=== PATIENT | female | born 1955 | race African-American/Black ===

== ENCOUNTER 2020-04-05 14:57 | Emergency (ER) | payer MEDICARE, SELFPAY ==
[2020-04-05 15:03] VITALS: BP 127/75; PULSE 62; RESP 16; TEMP 36.5; O2SAT 98
--- NOTE | 2020-04-05 15:13 | ED.GENADULT ---
HPI - General Adult General Chief complaint: Nausea/Vomiting/Diarrhea <Arnoldo Saenz PA-C - Last Filed: 04/05/20 16:40> Stated complaint: nausea x 2 weeks <Arnoldo Saenz PA-C - Last Filed: 04/05/20 16:40> Time Seen by Provider: 04/05/20 15:04 <Arnoldo Saenz PA-C - Last Filed: 04/05/20 16:40> Source: patient <Arnoldo Saenz PA-C - Last Filed: 04/05/20 16:40> Mode of arrival: ambulatory <Arnoldo Saenz PA-C - Last Filed: 04/05/20 16:40> Limitations: no limitations <LUZ MARIA Dias Last Filed: 04/05/20 16:40> History of Present Illness HPI narrative: Patient is a 65-year-old female who presents to emergency department for evaluation of nausea with intermittent vomiting that is been present now over the last 2 weeks her primary care called in Augmentin due to some congestion however patient notes this is minimal in nature. Patient notes that she has had some dark stool denies any NSAID use or anticoagulant use or history of rectal bleeding. Patient notes mild nausea with intermittent vomiting with decreased desire to eat. Patient denies any pain on arrival is in the room in no distress <Arnoldo Saenz PA-C - Last Filed: 04/05/20 16:40> Related Data Allergies/adverse reactions: Allergies Allergy/AdvReac Type Severity Reaction Status Date / Time No Known Allergies Allergy Unverified 01/04/18 07:37 <Arnoldo Saenz PA-C - Last Filed: 04/05/20 16:40> Review of Systems Review of Systems: All systems reviewed & are unremarkable except as noted in HPI and below <Arnoldo Saenz PA-C - Last Filed: 04/05/20 16:40> PMFSH Past Medical History Medical History: Medical History (Updated 04/05/20 @ 16:38 by Arnoldo Saenz PA-C) Hyperlipidemia <Arnoldo Saenz PA-C - Last Filed: 04/05/20 16:40> Exam Narrative: Exam Narrative: GENERAL: Well-appearing, well-nourished, and in no acute distress. HEAD: Normocephalic, atraumatic. EYES: PERRLA and EOMI. ENT: Nares clear, no rhinorrhea or epistaxis. Mucous membranes moist. Oropharynx without tonsillar hypertrophy exudate or other lesions. Patient with bilateral cerumen impaction NECK: Supple. No adenopathy or masses. CHEST: Clear to auscultation. No respiratory distress. No wheezes rales or rhonchi HEART: Regular rate and rhythm. No murmur heard. Normal peripheral pulses. ABDOMEN: Soft, nontender, nondistended EXTREMITIES: Normal range of motion. No edema. SKIN: Warm, dry, no rash. NEURO: No focal deficits. Alert and oriented x3. PSYCH: Normal mood and affect. <LUZ MARIA Dias Last Filed: 04/05/20 16:40> Course Course Emergency Course: Patient in the room in no distress aware of case findings treatment plan and diagnosis will be referred to primary care for further evaluation <Arnoldo Saenz PA-C - Last Filed: 04/05/20 16:40> Vital Signs Vital signs: Vital Signs Temperature 97.7 F 04/05/20 15:03 Pulse Rate 62 04/05/20 15:03 Respiratory Rate 16 04/05/20 15:03 Blood Pressure 127/75 04/05/20 15:03 Pulse Oximetry 98 04/05/20 15:03 Temperature 97.7 F 04/05/20 15:03 Pulse Rate 85 04/05/20 16:43 Respiratory Rate 18 04/05/20 16:43 Blood Pressure 132/75 04/05/20 16:43 Pulse Oximetry 98 04/05/20 16:43 <LUZ MARIA Dias Last Filed: 04/05/20 16:40> Vital Signs Temperature 97.7 F 04/05/20 15:03 Pulse Rate 62 04/05/20 15:03 Respiratory Rate 16 04/05/20 15:03 Blood Pressure 127/75 04/05/20 15:03 Pulse Oximetry 98 04/05/20 15:03 Temperature 97.7 F 04/05/20 15:03 Pulse Rate 85 04/05/20 16:43 Respiratory Rate 18 04/05/20 16:43 Blood Pressure 132/75 04/05/20 16:43 Pulse Oximetry 98 04/05/20 16:43 <Ana Webster MD - Last Filed: 04/05/20 17:37> Medical Decision Making MDM Narrative Medical decision making narrative: Patient with zine vomiting of unknown etiology will be
[2020-04-05 15:23] LABS: Basophils Absolute Auto 0.1 K/mm3 (0.0-0.1); Basophils Percent Auto 1.2 % (0.2-1.2); Eosinophils Absolute Auto 0.3 K/mm3 (0-0.3); Eosinophils Percent Auto 3.8 % (0-4.4); Hematocrit 41.6 % (37.0-47.0); Hemoglobin 13.6 g/dL (12.0-15.0); Immature Granulocyte Absolute 0.02 K/mm3 (0.00-0.031); Immature Granulocyte Percent A 0.3 % (0-0.5); Lymphocytes Absolute Auto 2.76 K/mm3 (0.9-3.2); Lymphocytes Percent Auto 36.4 % (18.3-44.2); Mean Corpuscular HGB Conc 32.7 g/dl (32-36); Mean Corpuscular Hemoglobin 25.8 pg (26-34); Mean Corpuscular Volume 78.9 fl (80-100); Mean Platelet Volume 9.9 fl (7.4-10.4); Monocytes Absolute Auto 0.7 K/mm3 (0.1-0.6); Monocytes Percent Auto 8.8 % (2.6-8.5); Neutrophils Absolute Auto 3.8 K/mm3 (1.3-6.7); Neutrophils Percent Auto 49.5 % (45.5-73.1); Platelet Count Result 354 k/mm3 (150-375); Red Blood Count 5.27 M/mm3 (4.2-5.4); White Blood Count 7.6 K/mm3 (4.5-10.0)
[2020-04-05] MEDS: SODIUM CHLORIDE 0.9% IV 1,000 ML 999 ML IV CONT (15:23)
[2020-04-05] MEDS: FAMOTIDINE 20 MG/2 ML VIAL IV PUSH (15:23)
[2020-04-05] MEDS: ONDANSETRON INJ 4 MG/2 ML VIAL IV PUSH (15:23)
[2020-04-05 15:50] VITALS: BP 138/68; PULSE 57
[2020-04-05 15:51] VITALS: BP 126/85; PULSE 51
[2020-04-05 15:53] VITALS: BP 148/72; PULSE 66
[2020-04-05 15:53] LABS: Alanine Aminotransferase 15 U/L (4-35); Albumin Level 4.6 g/dL (3.5-5.1); Alkaline Phosphatase 147 U/L (38-126); Aspartate Amino Transferase 22 U/L (14-36); Bilirubin,Total 0.6 mg/dL (0.2-1.3); Blood Urea Nitrogen 19 mg/dL (7-17); Calcium 9.9 mg/dL (8.4-10.2); Carbon Dioxide 29 mmol/L (22-30); Chloride 103 mmol/L (98-107); Estimated CRCL calculation 47 ml/min; Estimated Glomerular Filt Rate > 60; Glucose 91 mg/dL (65-105); Lipase 93 U/L (23-300); Potassium 3.5 mmol/L (3.4-5.0); Sodium 140 mmol/L (137-145)
[2020-04-05 16:17] LABS: Add Urine Microscopic? YES; Appearance Urine Clear (Clear); Bacteria Urine Trace /hpf; Bilirubin Urine Negative (Negative); Blood Urine Negative (Negative); Color Urine Yellow (Yellow); Glucose Urine UA Negative (Negative); Ketones Urine Negative (Negative); Leukocyte Esterase Ur Negative LEU/UL (Negative); Mucus Urine Rare /lpf; Nitrate Urine Negative (Negative); Protein Urine 1+ mg/dL (Negative); RBC Urine 0-2 /hpf (0-2); Specific Grav Ur 1.018 (1.001-1.035); Squamous Epithelial Cell Urine Many /hpf (Few)
[2020-04-05 16:43] VITALS: BP 132/75; PULSE 85; RESP 18; O2SAT 98
== END 2020-04-05 16:45 | disposition home or self-care (01) ==
PROVIDERS: Emergency Medicine Emergency Medical Services; Emergency Provider Emergency Medicine; PCP Internal Medicine Infectious Disease
DX: R11.2 Nausea with vomiting, unspecified (principal); E78.5 Hyperlipidemia, unspecified
CPT/HCPCS: 36415; 80053; 81001; 83690; 85025; 96374; 96375; 99284; J2405; J7030

== ENCOUNTER 2022-05-30 11:01 | Emergency (ER) | payer MEDICARE, SELFPAY ==
--- NOTE | ~2022-05-30 | CT_ITS ---
EXAMINATION: CT wrist RT wo con DATE: 05/30/2022 13:38 INDICATION: Distal radial and wrist pain TECHNIQUE: Computed tomography (CT) of the wrist was performed without intravenous contrast. Automate d exposure control and iterative reconstruction technique were employed. Exam dose: 385.54 mGy-cm to le exam DLP. COMPARISON: 05/30/2022 right wrist FINDINGS: Probable old distal radial dorsal cortical fracture. No recent lucent fracture line is evident. Chip fractures of uncertain age are noted along the dorsal aspect of the trapezoid bone and the dorsa l medial aspect of the capitate bone. No fracture or dislocation is noted otherwise. IMPRESSION: Probable old distal radial fracture Small chip fractures of the dorsal aspect of the triquetrum and posteromedial distal capitate bone. T he carpal metacarpal area. Recommend clinical correlation for point tenderness to differentiate recen t from old fractures Reviewed, dictated and finalized at [facility]. Reviewed, dictated and finalized at [facility]. IMPRESSION: Probable old distal radial fracture Small chip fractures of the dorsal aspect of the triquetrum and posteromedial d istal capitate bone. The carpal metacarpal area. Recommend clinical correlation for point tenderness to differentiate recent from old fractures
--- NOTE | ~2022-05-30 | XR_ITS ---
XR wrist RT min 3V DATE: 05/30/2022 12:29 INDICATION: Right wrist pain for weeks. History of gout. TECHNIQUE: 4 views COMPARISON: None FINDINGS: There is mild osteophyte is at the third metacarpophalangeal and some interphalangeal joint s. Osteopenia. No fracture or dislocation, periosteal reaction or bone destruction is detected. IMPRESSION: Osteopenia Polyarticular osteoarthritis No fracture or dislocation Reviewed, dictated and finalized at [facility].
[2022-05-30 11:02] VITALS: BP 148/80; PULSE 61; RESP 16; TEMP 36.4; O2SAT 98
--- NOTE | 2022-05-30 12:26 | PC.NURSE ---
Pt taken to x-ray
[2022-05-30] MEDS: KETOROLAC 30 MG/ML VIAL (*BKC) IM (12:38)
--- NOTE | 2022-05-30 12:42 | ED.EXTPRO ---
HPI - Extremity Problem General Chief complaint: Extremity Problem,Nontraumatic Stated complaint: R HAND/WRIST PAIN NO INJURY Time Seen by Provider: 05/30/22 11:55 Source: patient History of Present Illness HPI Narrative: Patient presents with right wrist pain. For she had pain for the past 2 weeks she seen her primary care doctor had an x-ray performed but is unsure of the results. She does report a history of arthritis. She is attempted indomethacin with minimal relief she is also attempted Tylenol arthritis with more relief of her symptoms. Pain continues to progressively risk in the ER for further evaluation. Her pain is achy, constant, radiates up her arm, worse with attempting to move her wrist prickly with supination. Denies any fevers or chills denies any history of IV drug use. Related Data Allergies Allergy/AdvReac Type Severity Reaction Status Date / Time No Known Allergies Allergy Verified 05/30/22 11:35 Review of Systems Review of Systems: CONSTITUTIONAL: Denies fever, chills, or sweats. EYES: Denies visual changes, redness, or discharge. ENT: Denies rhinorrhea, congestion, sore throat, or otalgia. CARDIOVASCULAR: Denies chest pain, palpitations, or edema. RESPIRATORY: Denies cough or dyspnea. GASTROINTESTINAL: Denies abdominal pain, nausea, vomiting, or diarrhea. GENITOURINARY: Denies dysuria or hematuria. SKIN: Denies rash or itching. MUSCULOSKELETAL: Denies back pain, or myalgia. NEUROLOGIC: Denies headache, numbness, dizziness, or weakness. PSYCHIATRIC: Denies anxiety or depression. All systems reviewed & are unremarkable except as noted in HPI and below PMFSH Past Medical History Medical History Hyperlipidemia Exam Narrative: GENERAL: Well-appearing, well-nourished, and in no acute distress. HEAD: Normocephalic, atraumatic. EYES: PERRLA and EOMI. ENT: Nares clear, no rhinorrhea or epistaxis. Mucous membranes moist. NECK: Supple. No masses. No JVD EXTREMITIES: Normal range of motion. No edema. Edema and tenderness palpation on the right wrist limited range of motion due to pain with radial ulnar deviation and supination as well as flexion and extension of the wrist. SKIN: Warm, dry, no rash. NEURO: No focal deficits. Alert and oriented x3. PSYCH: Normal mood and affect. Course Reevaluation(s) Reevaluation #1: Patient resting comfortably reports feeling improved after Toradol. Results and plan reviewed with patient. Patient is comfortable outpatient plan. Patient reports he already has referral to orthopedic surgeon. Date: 05/30/22 Time: 14:33 Vital Signs Vital signs: Vital Signs Temperature 36.4 C 05/30/22 11:02 Pulse Rate 61 05/30/22 11:02 Respiratory Rate 16 05/30/22 11:02 Blood Pressure 148/80 H 05/30/22 11:02 Pulse Oximetry 98 05/30/22 11:02 Oxygen Delivery Room Air 05/30/22 11:02 Temperature 36.4 C 05/30/22 11:02 Pulse Rate 61 05/30/22 11:02 Respiratory Rate 16 05/30/22 11:02 Blood Pressure 148/80 H 05/30/22 11:02 Pulse Oximetry 98 05/30/22 11:02 Oxygen Delivery Room Air 05/30/22 11:02 MDM - Extremity (Nontraumatic) MDM Narrative Medical decision making narrative: H&P as above, vss, pt looks clinically well, exam times palpation of the wrist, imaging with small chip fracture given patient duration of symptoms expect these are acute fractures or patient denies any significant trauma additional labs/img considered, symptomatic relief available as needed, on reevaluation pt continues to looks clinically well. Suspect isolated fractures with possible superimposed flareup of arthritis dns dislocation, major neurovascular compromise, open fracture plan to tx/monitor as op w/ pcm f/u findings/plan discussed with pt, pt agree/comfortable with plan, return precautions given Imaging Data Radiologist's impression: Impressions Wrist X-Ray 05/30/22 12:38 IMPRESSION: Osteopenia Polyartic
== END 2022-05-30 15:05 | disposition home or self-care (01) ==
PROVIDERS: Emergency Provider Emergency Medicine; PCP Internal Medicine Infectious Disease
DX: S62.111A Displaced fracture of triquetrum [cuneiform] bone, right wrist, initial encounter for closed fracture (principal); S62.131A Displaced fracture of capitate [os magnum] bone, right wrist, initial encounter for closed fracture; E78.5 Hyperlipidemia, unspecified; M85.88 Other specified disorders of bone density and structure, other site; M19.031 Primary osteoarthritis, right wrist; X58.XXXA Exposure to other specified factors, initial encounter
CPT/HCPCS: 29125; 73110; 73200; 96372; 99284; J1885